=== PATIENT | female | born 1940 | race Caucasian/White ===

== ENCOUNTER → 2022-12-07 12:44 | Outpatient (CLI) | payer OTHER, SELFPAY ==
[2022-12-07 13:26] LABS: Influenza A - CEPHEID Flu A NEGATIVE (NEGATIVE); Influenza B - CEPHEID Flu B NEGATIVE (NEGATIVE); Respiratory Syncytial Virus Negative (Negative)
[2022-12-07 13:27] LABS: COVID-19 CEPHEID 4-PLEX PCR Negative (Negative)
== END ==
PROVIDERS: Visit Provider Nurse Practitioner Family
DX: R05.1 Acute cough (principal)
CPT/HCPCS: 0241U

== ENCOUNTER → 2022-12-07 13:00 | Outpatient (CLI) | payer OTHER, SELFPAY ==
--- NOTE | 2022-12-07 13:01 | DI.RAD.S_ITS ---
PROCEDURE: XR CHEST 2V INDICATIONS: Cough TECHNIQUE: 2 views of the chest were acquired. COMPARISON: [facility], CR, XR CHEST 2 VIEWS, 12/08/2021, 11:07. FINDINGS: Surgical changes and devices: None. Lungs and pleura: Lungs are clear. No pleural effusions or pneumothorax. Mediastinum: Mediastinal contours are normal. Heart size is normal. Bones and chest wall: No suspicious bony abnormalities. Soft tissues appear unremarkable. IMPRESSION: No acute cardiopulmonary disease. Dictated by: Tony Morris [facility] Interpreted: Zenobia Dunlap MD on 12/07/2022 at 13:19 Transcribed by: REY on 12/07/2022 at 13:20 Approved by: Zenobia Dunlap M.D. on 12/07/2022 at 20:23
== END ==
PROVIDERS: Referring Provider Nurse Practitioner Family; Visit Provider Nurse Practitioner Family
DX: R05.1 Acute cough (principal)
CPT/HCPCS: 0241U; 71046

== ENCOUNTER 2023-02-18 11:41 | Emergency (ER) | payer OTHER, SELFPAY ==
[2023-02-18] VITALS (24 sets, daily range): BP systolic 135–187; BP diastolic 74–97; PULSE 63–77; RESP 15–16; TEMP 36.5–36.8; O2SAT 96–100; BMI 25.3
--- NOTE | 2023-02-18 11:54 | DI.CT.S_ITS ---
PROCEDURE: CT HEAD/BRAIN WO CON INDICATIONS: headache TECHNIQUE: Noncontrast 4.5 mm thick angled axial sections acquired from the foramen magnum to the vertex, with coronal and sagittal reformats. For radiation dose reduction, the following was used: automated exposure control, adjustment of mA and/or kV according to patient size. COMPARISON: None. FINDINGS: Image quality: Excellent. CSF spaces: Basal cisterns are patent. No extra-axial fluid collections. The ventricles are symmetric in size and shape. Brain: No intracranial bleeds or masses. There is cerebral volume loss for age, with resultant ventricular and sulcal prominence. There are periventricular and deep white matter chronic small vessel ischemic changes. There is intracranial internal carotid artery atherosclerosis. Skull and face: Calvarium and visualized facial bones appear intact, without suspicious lesions. 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 Sinuses: Visualized sinuses and mastoids are clear. IMPRESSION: 1. No CT evidence of acute intracranial process. 2. Age-appropriate cerebral cortical volume loss and chronic microvascular ischemic changes. Dictated by: Brit Martínez M.D. on 02/18/2023 at 11:45 Approved by: Brit Martínez M.D. on 02/18/2023 at 11:47
--- NOTE | 2023-02-18 11:54 | ED_ITS ---
HPI - Headache General Chief Complaint: Headache Stated Complaint: headache for 4 days, getting worse Time Seen by Provider: 02/18/23 11:53 Mode of arrival: Ambulatory History of Present Illness HPI Narrative: 82-year-old female nonsmoker without chronic medical history presents with family in the chief complaint of a gradually worsening headache that started ab out 4 days ago. She denies associated symptoms such as blurred vision, nausea, vomiting or fever. She denies any trouble with speech or numbness, tingling weakness in her extremities. She is had no trauma or injury. She has developed some left-sided neck pain as well and states that she seems to have increased pain when she turns her head and can feel spasming of the muscles posteriorly on the left side of her neck. she has had no confusion or altered mental status per her own admission and that of the family at the bedside. Related Data Previous Rx's Medication Instructions Recorded benzonatate 100 mg capsule 100 mg PO BID PRN cough #20 caps 12/07/22 fluticasone propionate 50 1 spray intranasal Q12H #16 grams 12/07/22 mcg/actuation nasal spray,suspension (Flonase Allergy Relief) cyclobenzaprine 10 mg tablet 10 mg PO TID PRN muscle spasm #14 02/18/23 tabs Allergies Allergy/AdvReac Type Severity Reaction Status Date / Time No Known Drug Allergies Allergy Unverified 12/07/22 12:40 Review of Systems Review of Systems Narrative: GENERAL: See HPI HEENT: see HPI RESPIRATORY: Denies dyspnea, cough, wheezing, hemoptysis, sputum. CARDIOVASCULAR: Denies chest pain, palpitations, orthopnea, edema, GASTROINTESTINAL: Denies nausea, vomiting, abdominal pain, diarrhea, co nstipation, melena. : Denies dysuria, frequency, incontinence, hematuria, urinary retention. MUSCULOSKELETAL: denies weakness, joint pain, or bony pain SKIN: Denies rash, skin lesions, or other NEUROLOGIC: see HPI PSYCHIATRIC: No concerning psychosocial issues. 12 point review of systems is negative except for those stated above Patient History Social History Smoking Status: Current some day smoker Smoking Status: Current some day smoker alcohol intake frequency: 0-2 drinks per day Substance Use Type: does not use Exam Initial Vital Signs Initial Vital Signs: Vital Signs Temperature 97.7 F 02/18/23 11:45 Pulse Rate 77 02/18/23 11:45 Respiratory Rate 15 02/18/23 11:45 Blood Pressure 187/97 H 02/18/23 11:45 Pulse Oximetry 99 02/18/23 11:45 Oxygen Delivery Method Room Air 02/18/23 11:45 Course Orders Ordered: ED Orders 02/18/23 11:54 CT head/brain wo con Stat 02/18/23 11:57 Complete Blood Count AUTO DIFF Stat Comprehensive Metabolic Panel Stat Lipase Stat 02/18/23 14:07 Urinalysis and Microscopic Stat Urine Culture Stat 02/18/23 14:25 Respiratory Panel (Film Array) Stat Strep Grp A by PCR Rapid Stat Throat Culture Stat Ondansetron HCl (Ondansetron 4 Mg/2 Ml Inj) 4 mg IV NOW PRN PRN Reason: Nausea And Vomiting Discontinued Medications Cyclobenzaprine HCl (Cyclobenzaprine 10 Mg Tablet) 5 mg PO NOW ONE Stop: 02/18/23 14:20 Last Admin: 02/18/23 15:02 Dose: 5 mg Documented By: ERIC Acetaminophen (Ofirmev) 1,000 mg in 100 mls @ 400 mls/hr IV NOW ONE Stop: 02/18/23 12:29 Last Infusion: 02/18/23 13:14 Dose: 0 mls/hr Documented By: Admin: 02/18/23 13:00 Dose: 400 mls/hr Documented By: QUITA Ketorolac Tromethamine (Ketorolac 30 Mg/Ml Vial) 10 mg IV NOW ONE Stop: 02/18/23 13:15 Last Admin: 02/18/23 13:18 Dose: 10 mg Documented By: QUITA Reevaluation(s) Reevaluation #1: patient continuing to feel much better, stating her pain now is only a 2 or 3 Vital Signs Vital signs: Vital Signs - 8 hr 02/18/23 11:45 02/18/23 11:47 02/18/23 11:47 Temperature 97.7 F Pulse Rate 77 75 Respiratory Rate 15 Blood Pressure 187/97 H 187/97 H Pulse Oximetry 99 98 Oxygen Delivery Method Room Air Room Air 02/18/23 12:06 02/18/23 12:30 02/18/23 12:53 Temperature Pulse Rate 73 66 73 Respiratory Rate Blood Pressure Pulse Oximetry 98 97 98 Oxygen Delivery Method Room Air Room Air 02/18/23 12:53 02/18/23 13:00 02/18/23 13:00 Temperature Pulse Rate 74 Respiratory Rate Blood Pressure 176/82 H 176/82 H Pulse Oximetry 98 Oxygen Delivery Method 02/18/23 13:10 02/18/23 13:10 02/18/23 13:20 Temperature Pulse Rate 74 70 Respiratory Rate Blood Pressure 179/82 H Pulse Oximetry 97 98 Oxygen Delivery Method 02/18/23 13:20 02/18/23 13:30 02/18/23 13:30 Temperature Pulse Rate 64 Respiratory Rate 16 Blood Pressure 160/83 H 161/81 H Pulse Oximetry 97 Oxygen Delivery Method Room Air 02/18/23 13:40 02/18/23 13:40 02/18/23 13:50 Temperature Pulse Rate 64 63 Respiratory Rate Blood Pressure 152/78 H Pulse Oximetry 97 96 Oxygen Delivery Method 02/18/23 13:50 02/18/23 14:00 02/18/23 14:01 Temperature Pulse Rate 71 Respiratory Rate Blood Pressure 153/81 H 154/96 H Pulse Oximetry 97 Oxygen Delivery Method 02/18/23 14:01 02/18/23 14:07 02/18/23 14:07 Temperature Pulse Rate 75 68 Respiratory Rate Blood Pressure 168/80 H Pulse Oximetry 97 98 Oxygen Delivery Method 02/18/23 14:10 02/18/23 14:10 02/18/23 14:20 Temperature Pulse Rate 66 Respiratory Rate Blood Pressure 166/82 H 145/75 H Pulse Oximetry 98 Oxygen Delivery Method 02/18/23 14:20 02/18/23 14:30 02/18/23 14:30 Temperature Pulse Rate 63 66 Respiratory Rate Blood Pressure 162/85 H Pulse Oximetry 98 97 Oxygen Delivery Method MDM - Headache Lab Data 02/18/23 11:57 02/18/23 11:57 Labs: Lab Results 02/18/23 02/18/23 02/18/23 Range/Units 11:57 11:57 14:07 WBC 9.7 (4.5-11.0) X10^3/uL RBC 4.55 (4.0-5.2) X10^6/uL Hgb 13.7 (12.0-16.0) g/dL Hct 40.2 (36-46) % MCV 88.4 (80-100) fL MCH 30.1 (26-34) PG MCHC 34.1 (30-36) % RDW 13.5 (11.6-14.8) % Plt Count 237 (150-400) X10^3/uL Neut % (Auto) 73.0 (50-75) % Lymph % (Auto) 16.0 L (25-40) % [place] % (Auto) 8.5 (3-14) % Eos % (Auto) 1.5 L (2-4) % Baso % (Auto) 1.0 (0-2) % Neut # (Auto) 7000 (8848-1015) /uL Lymph # (Auto) 1500 (3026-8906) /uL Webster # (Auto) 800 (0-900) /uL Eos # (Auto) 100 (0-450) /uL Baso # (Auto) 100 (0-100) /uL Sodium 135 L (137-145) mmol/L Potassium 4.0 (3.4-5.1) mmol/L Chloride 104 (98-107) mmol/L Carbon Dioxide 27 (22-32) mmol/L BUN 17 (7-17) mg/dL Creatinine 0.63 (0.52-1.04) mg/dL Estimated GFR > 60 (>60) mL/min BUN/Creatinine Ratio 27.0 H (6-22) Glucose 111 H (80-110) mg/dL Calcium 9.2 (8.4-10.2) mg/dL Total Bilirubin 0.6 (0.2-1.3) mg/dL AST 21 (14-36) IU/L ALT 16 (<35) IU/L Alkaline Phosphatase 71 (38-126) U/L Total Protein 7.3 (6.3-8.2) g/dL Albumin 4.0 (3.5-5.0) g/dL Globulin 3.3 (1.7-4.1) g/dL Albumin/Globulin Ratio 1.2 (1.0-2.8) Lipase 77 (23-300) U/L Urine Color Yellow Urine Appearance Clear Urine pH 5.5 (4.5-8.0) Ur Specific [place] 1.020 (1.000-1.035) Urine Protein Negative (Negative) Urine Glucose (UA) Negative (Negative) g/dL Urine Ketones Negative (NEGATIVE) Urine Occult Blood 1+ H (Negative) Urine Nitrate Negative (Negative) Urine Bilirubin Negative (NEGATIVE) Urine Urobilinogen 0.2 (0.2) E.U./dL Ur Leukocyte Esterase 1+ H (NEGATIVE) Urine RBC 1-5/hpf (0-5/HPF) Urine WBC 5-10/hpf H (0-5/HPF) Ur Squamous Epith Cells 1-5 /hpf (0-5/HPF) Urine Bacteria Moderate (10-30) H (None) Ur Culture Indicated? Specimen cultured Group A Strep (PCR) (Negative) 02/18/23 Range/Units 14:25 WBC (4.5-11.0) X10^3/uL RBC (4.0-5.2) X10^6/uL Hgb (12.0-16.0) g/dL Hct (36-46) % MCV (80-100) fL MCH (26-34) PG MCHC (30-36) % RDW (11.6-14.8) % Plt Count (150-400) X10^3/uL Neut % (Auto) (50-75) % Lymph % (Auto) (25-40) % [place] % (Auto) (3-14) % Eos % (Auto) (2-4) % Baso % (Auto) (0-2) % Neut # (Auto) (8642-3647) /uL Lymph # (Auto) (2107-5872) /uL Webster # (Auto) (0-900) /uL Eos # (Auto) (0-450) /uL Baso # (Auto) (0-100) /uL Sodium (137-145) mmol/L Potassium (3.4-5.1) mmol/L Chloride (98-107) mmol/L Carbon Dioxide (22-32) mmol/L BUN (7-17) mg/dL Creatinine (0.52-1.04) mg/dL Estimated GFR (>60) mL/min BUN/Creatinine Ratio (6-22) Glucose (80-110) mg/dL Calcium (8.4-10.2) mg/dL Total Bilirubin (0.2-1.3) mg/dL AST (14-36) IU/L ALT (<35) IU/L Alkaline Phosphatase (38-126) U/L Total Protein (6.3-8.2) g/dL Albumin (3.5-5.0) g/dL Globulin (1.7-4.1) g/dL Albumin/Globulin Ratio (1.0-2.8) Lipase (23-300) U/L Urine Color Urine Appearance Urine pH (4.5-8.0) Ur Specific [place] (1.000-1.035) Urine Protein (Negative) Urine Glucose (UA) (Negative) g/dL Urine Ketones (NEGATIVE) Urine Occult Blood (Negative) Urine Nitrate (Negative) Urine Bilirubin (NEGATIVE) Urine Urobilinogen (0.2) E.U./dL Ur Leukocyte Esterase (NEGATIVE) Urine RBC (0-5/HPF) Urine WBC (0-5/HPF) Ur Squamous Epith Cells (0-5/HPF) Urine Bacteria (None) Ur Culture Indicated? Group A Strep (PCR) Negative (Negative) [facility] Narrative Medical decision making narrative: [82] year old patient presents with left lateral neck muscular pain and left- sided headache Multiple etiologies for patient's symptoms considered including, but not limited to: [ paraspinal muscle spasm and tension headache versus intracranial hemorrhage versus meningitis versus other] Headache considerations include, but not limited to: Subarachnoid hemorrhage, but unlikely as patient denies sudden onset of pain, not worst of life, or neck pain Meningitis considered, but thought unlikely given lack of Brudzinski's, Kernig's sign, altered mental status or fever Giant cell arteritis considered, but thought unlikely given lack of unilateral findings, pain in confucianism, vision change Other serious diagnoses considered unlikely given lack of red flag findings such as sudden onset, increasing frequency, immunocompromise, systemic signs (fever, chills, stiff neck, or rash), focal neurologic findings, trauma, blood thinners, etc. Prior Charts reviewed in our EMR Primary Historian: patient Labs reviewed and interpreted by myself: no leukocytosis or left shift, no signs of anemia, electrolytes within normal Imaging reviewed: chest x-ray without acute findings, head CT without acute findings Patient's symptoms improved over duration of stay with above-stated therapies. she is alert and oriented without signs of confusion, she is had no fever. Men ingitis is considered but thought much less likely given her overall presentation, lack of classic meningeal signs, no fever, negative Kernig's. That being said we did discuss the risks and benefits of a lumbar puncture. After this discussion and clear understanding of those risks and benefits both she and family would prefer to hold off on a lumbar puncture at this time. Imaging is unremarkable, rapid strep is negative. She has improvement with anti-inflammatories and Flexeril. She is been given return precautions and questions answered to her apparent satisfaction Findings and discharge diagnosis discussed with patient/family followed by verbalization of understanding Return precautions discussed with patient/family whom verbalize understanding of diagnosis and plan Discharge Plan Departure Patient Disposition: Home Clinical Impression: Headache, Acute neck pain Instructions: DI for Headache, DI for Neck Pain Activity Restrictions/Additional Instructions: *You have been diagnosed with [ Headache and neck pain. As we discussed your history and physical exam are reassuring as are the labs and CT scan. This seems most likely related to muscle inflammation or spasm. We did discuss the potential and low likelihood of meningitis which seems extremely unlikely given your history, physical exam and improvement with the therapies given here.] *What to do: * Prescription sent to [facility] in [place] *Take medications as directed *Follow up with your primary care provider in 2-3 days, call for an appointment. Let them know you were seen in the Emergency Department and that we ask that you be seen in follow up *Return to ER if you should have any new, worsening or concerning symptoms, such as [ fever > 101F, vomiting, confusion, seizure, focal weakness, vision change, speech deficit or other concerning symptoms ] Prescriptions: New cyclobenzaprine 10 mg tablet 10 mg PO TID PRN (Reason: muscle spasm) Qty: 14 0RF No Action benzonatate 100 mg capsule 100 mg PO BID PRN (Reason: cough) Qty: 20 0RF fluticasone propionate [Flonase Allergy Relief] 50 mcg/actuation spray,suspension 1 spray intranasal Q12H Qty: 16 0RF Rx Instructions: administer into each nostril Referrals: Miscellaneous,Doctor, MD [Primary Care Provider] - Stand Alone Forms: Patient Portal/API
[2023-02-18 12:02] LABS: Add Manual Diff / Slide Review NO; Basophils Absolute Auto 100 /uL (0-100); Eosinophils Absolute Auto 100 /uL (0-450); Eosinophils Percent Auto 1.5 % (2-4); Hematocrit 40.2 % (36-46); Hemoglobin 13.7 g/dL (12.0-16.0); Lymphocytes Absolute Auto 1500 /uL (1100-4500); Mean Corpuscular HGB Conc 34.1 % (30-36); Mean Corpuscular Hemoglobin 30.1 PG (26-34); Mean Corpuscular Volume 88.4 fL (80-100); Monocytes Absolute Auto 800 /uL (0-900); Monocytes Percent Auto 8.5 % (3-14); Neutrophils Absolute Auto 7000 /uL (1500-7000); Platelet Count 237 X10^3/uL (150-400); Red Blood Cell Count 4.55 X10^6/uL (4.0-5.2); Red Cell Distribution Width 13.5 % (11.6-14.8); White Blood Cell Count 9.7 X10^3/uL (4.5-11.0)
[2023-02-18 12:22] LABS: Alanine Aminotransferase 16 IU/L (<35); Albumin Globulin Ratio 1.2 (1.0-2.8); Alkaline Phosphatase 71 U/L (38-126); Aspartate Aminotransferase 21 IU/L (14-36); Bilirubin Total 0.6 mg/dL (0.2-1.3); Blood Urea Nitrogen 17 mg/dL (7-17); Calcium 9.2 mg/dL (8.4-10.2); Carbon Dioxide 27 mmol/L (22-32); Chloride 104 mmol/L (98-107); Estimated Glomerular Filt Rate > 60 mL/min (>60); Globulin 3.3 g/dL (1.7-4.1); Glucose 111 mg/dL (80-110); HEMOLYSIS < 15 (0-50); Lipase 77 U/L (23-300); Sodium 135 mmol/L (137-145); Total Protein 7.3 g/dL (6.3-8.2)
[2023-02-18] MEDS: ACETAMINOPHEN IV 1,000 MG/100 ML VIAL 400 MG IV (13:00)
[2023-02-18] MEDS: KETOROLAC 30 MG/ML VIAL 10 MG IV (13:18)
[2023-02-18 14:25] LABS: Appearance Urine UA CLEAR; Bilirubin Urine UA NEGATIVE (NEGATIVE); Color Urine UA YELLOW; Glucose Urine UA NEGATIVE (Negative); Ketones Urine UA NEGATIVE (NEGATIVE); Leukocyte Esterase Urine UA 1+ (NEGATIVE); Nitrite Urine UA NEGATIVE (Negative); Occult Blood Urine UA 1+ (Negative); Protein Urine UA NEGATIVE (Negative); Urobilinogen Urine UA 0.2 E.U./dL (0.2)
[2023-02-18 14:45] LABS: pH Urine UA 5.5 (4.5-8.0)
[2023-02-18 14:49] LABS: Bacteria Urine Moderate (10-30); Culture Indicated Urine Specimen Cultured; RBC Urine 1-5/HPF (0-5/HPF); Squamous Epithelial Cell Urine 1-5 /HPF (0-5/HPF); WBC Urine 5-10/HPF (0-5/HPF)
[2023-02-18 14:49] LABS: Strep Grp A by PCR Rapid Negative (Negative)
[2023-02-18] MEDS: CYCLOBENZAPRINE 10 MG TABLET 5 MG PO (15:02)
[2023-02-18 15:44] LABS: Adenovirus Not Detected (Not Detect); B. parapertussis Not Detected (Not Detecte); Bordetella pertussis Not Detected (Not Detecte); Chlamydophila pneumoniae Not Detected (Not Detect); Coronavirus 229E Not Detected (Not Detect); Coronavirus HKU1 Not Detected (Not Detect); Coronavirus NL 63 Not Detected (Not Detect); Coronavirus OC43 Not Detected (Not Detect); Human Metapneumovirus Not Detected (Not Detect); Human Rhinovirus/Enterovirus Not Detected (Not Detect); Influenza A Not Detected (Not Detect); Influenza B Not Detected (Not Detect); Mycoplasma pneumoniae Not Detected (Not Detect); Parainfluenza Virus 1 Not Detected (Not Detect); Parainfluenza Virus 2 Not Detected (Not Detect); Parainfluenza Virus 3 Not Detected (Not Detect); Parainfluenza Virus 4 Not Detected (Not Detect); Respiratory Syncytial Virus Not Detected (Not Detect); SARS- CoV-2 Not Detected (Not Detecte)
== END 2023-02-18 15:50 | disposition home or self-care (01) ==
PROVIDERS: Emergency Provider Emergency Medicine
DX: R51.9 Headache, unspecified (principal); M54.2 Cervicalgia
CPT/HCPCS: 36415; 70450; 80053; 81001; 83690; 85025; 87070; 87086; 87633; 87651; 96374; 96375; 99284; J0131; J1885